=== PATIENT | male | born 1955 | race Caucasian/White ===

== ENCOUNTER 2016-11-11 13:47 | Outpatient (CLI) | payer MEDICARE, OTHER ==
[2012-07-19 21:47] VITALS: BP 146/81
[2016-11-11 14:09] LABS: BASOPHILS % 0.6 (0.0-1.5); EOSINOPHILS % 1.5 % (0.0-6.8); MEAN CORPUSCULAR HEMOGLOBIN 30.4 pg (28.0-34.0); MEAN CORPUSCULAR VOLUME 92.4 fl (80.0-100.0); MONOCYTES % 6.7 % (0.0-11.0); NEUTROPHILS # 4.2 # k/uL (1.4-7.7)
[2016-11-11 14:30] LABS: eGFR (African) > 60; eGFR (Non-African) > 60
== END 2016-11-11 13:50 ==
LOC: LAB 13:47
PROVIDERS: ATTEND Family Medicine
DX: Z51.81 Encounter for therapeutic drug level monitoring (principal); Z00.00 Encounter for general adult medical examination without abnormal findings
CPT/HCPCS: 36415; 80053; 80171; 85025

== ENCOUNTER 2017-01-24 10:55 | Outpatient (CLI) | payer MEDICARE, OTHER ==
[2012-07-19 21:47] VITALS: BP 146/81
--- NOTE | 2017-01-24 15:44 | Diagnostic Imaging Report ---
ROMARIO CHEEK [facility] [id number] [facility] [address] [address] Report Submission Date: Jan 24, 2017 11:24:14 AM CDT Patient Study Name: FARRUKH ROSENBERG Date: Jan 24, 2017 11:02:04 AM CDT Modality Type: CR Gender: M Description: SHOULDER : 53 Institution: [facility] Physician: ROMARIO CHEEK Examination: Plain film shoulder History: Discomfort Comparison exams: None provided Findings: 3 views of the shoulder demonstrates normal cortical margins. Acromioclavicular joint degenerative changes. No fracture line or dislocation. No soft tissue abnormality Impression: Articular degenerative changes. No fracture. If suspect soft tissue injury/abnormality, consider obtaining MRI. Electronically signed on Jan 24, 2017 11:24:14 AM CDT by: Norberto VICTOR
== END 2017-01-24 10:56 ==
LOC: RAD 10:55
PROVIDERS: ATTEND Family Medicine
DX: M25.511 Pain in right shoulder (principal)
CPT/HCPCS: 73030

== ENCOUNTER 2017-05-26 16:45 | Emergency (ER) | payer MEDICARE, OTHER ==
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
--- NOTE | 2017-05-26 18:40 | Diagnostic Imaging Report ---
[facility] [address] [facility] [address] [address] Report Submission Date: May 26, 2017 5:55:08 PM MARKETING PROGRAMS MANAGER Patient Study Name: FARRUKH ROSENBERG Date: May 26, 2017 5:36:25 PM MARKETING PROGRAMS MANAGER Modality Type: CR Gender: M Description: UPPER EXTREMITY : 53 Institution: [facility] Physician: STEFFI ROSENBERG Examination: Plain film humerus History: Discomfort Comparison exams: None provided Findings: 2 views of the humerus demonstrate normal cortical margins. No fracture. No dislocation. articular degenerative changes. Impression: No acute appearing osseous abnormality. Electronically signed on May 26, 2017 5:55:08 PM MARKETING PROGRAMS MANAGER by: Norberto VICTOR
--- NOTE | 2017-05-26 18:40 | Diagnostic Imaging Report ---
[facility] [address] [facility] [address] Report Submission Date: May 26, 2017 5:52:08 PM GOLF TOURNAMENT CONSULTANT Patient Study Name: FARRUKH ROSENBERG Date: May 26, 2017 5:28:17 PM GOLF TOURNAMENT CONSULTANT Modality Type: CR Gender: M Description: CHEST : 53 Institution: [facility] Physician: STEFFI ROSENBERG Examination: Plain film ribs History: Possible Injury Findings: 5 views of the left and right ribs demonstrates normal cortical margins. No fracture or dislocation. Underlying parenchymal without abnormality. Impression: No rib fracture/abnormality. Electronically signed on May 26, 2017 5:52:08 PM GOLF TOURNAMENT CONSULTANT by: Norberto VICTOR
--- NOTE | 2017-05-26 18:41 | Diagnostic Imaging Report ---
[facility] [address] [facility].[address] [address] Report Submission Date: May 26, 2017 5:50:08 PM COUNTY ADVISER Patient Study Name: FARRUKH ROSENBERG Date: May 26, 2017 5:22:58 PM COUNTY ADVISER Modality Type: CR Gender: M Description: CHEST : 53 Institution: [facility] Physician: STEFFI ROSENBERG Examination: PA and lateral chest. History: Evaluate lung westfall. Comparison exam: None provided Findings: PA lateral chest demonstrate a normal cardiac and mediastinal silhouette. Mild lower lung parenchymal haziness. No blunting of the costophrenic margins. Osseous structures are appropriate for age. Impression: Mild basilar infiltrates. No effusion. Electronically signed on May 26, 2017 5:50:08 PM COUNTY ADVISER by: Norberto VICTOR
[2017-05-26 19:05] VITALS: BP 132/67
== END 2017-05-26 18:09 | disposition home or self-care (01) ==
LOC: ED 16:45
DX: J18.9 Pneumonia, unspecified organism (principal); S29.8XXA Other specified injuries of thorax, initial encounter; X58.XXXA Exposure to other specified factors, initial encounter; Y93.9 Activity, unspecified; Y92.9 Unspecified place or not applicable
CPT/HCPCS: 71020; 71110; 73060; 99283